=== PATIENT | male | born 1990 | race Caucasian/White ===

== ENCOUNTER 2019-11-17 21:37 | Emergency (ER) | payer BC, OTHER ==
[2019-11-17 21:54] LABS: BASO # 0.1 10^3/uL (0.0-0.2); BASO % 0.5 % (0.0-1.0); EOS # 0.4 10^3/uL (0.0-0.5); EOS % 3.4 % (0.0-3.0); HEMATOCRIT 44.8 % (42.0-52.0); HEMOGLOBIN 14.8 g/dl (13.5-17.5); LYMPH # 4.3 10^3/uL (1.5-5.0); LYMPH % 41.2 % (24.0-44.0); MEAN CORPUSCULAR HEMOGLOBIN 28.5 pg (27.0-33.0); MEAN CORPUSCULAR VOLUME 86.2 fl (80.0-96.0); MONO # 0.8 10^3/uL (0.0-0.8); MONO % 7.3 % (0.0-5.0); NEUTROPHILS % 47.2 % (36.0-66.0); PLATELET COUNT, AUTOMATED 305 10^3/uL (150-450); WHITE BLOOD COUNT 10.5 10^3/uL (4.0-10.0)
[2019-11-17] MEDS ORDERED: NS 1,000 ML IV ONE (22:00)
--- NOTE | 2019-11-17 22:12 | REPVR ---
PROCEDURE INFORMATION: Exam: CT Head Without Contrast Exam date and time: 11/17/2019 10:00 PM Age: 29 years old Clinical indication: Altered mental status/memory loss; Confusion or disorientation TECHNIQUE: Imaging protocol: Computed tomography of the head without contrast. Radiation optimization: All CT scans at this facility use at least one of these dose optimization techniques: automated exposure control; mA and/or kV adjustment per patient size (includes targeted exams where dose is matched to clinical indication); or iterative reconstruction. COMPARISON: No relevant prior studies available. FINDINGS: Brain: Normal. No hemorrhage. Unremarkable white matter. No mass effect. Ventricles: Normal. No ventriculomegaly. Bones/joints: Unremarkable. No acute fracture. Sinuses: Visualized sinuses are unremarkable. No fluid levels. Mastoid air cells: Visualized mastoid air cells are well aerated. Soft tissues: Unremarkable. IMPRESSION: No acute intracranial abnormality. Electronically signed by: Jj Crane On 11/17/2019 22:12:21 PM
[2019-11-17 23:55] LABS: ACETAMINOPHEN LEVEL < 2.0 UG/ML (10.0-30.0); ALBUMIN 4.1 GM/DL (3.2-5.2); ALT/SGPT 25 U/L (12-78); BILIRUBIN,DIRECT 0.1 MG/DL (0.0-0.2); BILIRUBIN,TOTAL 0.3 MG/DL (0.2-1.0); BLOOD UREA NITROGEN 11 MG/DL (7-18); CARBON DIOXIDE LEVEL 19 MEQ/L (21-32); CHLORIDE LEVEL 107 MEQ/L (98-107); CK-MB VALUE MASS < 1.0 NG/ML (<3.6); CPK CREATINE PHOSPHOKINASE 152 U/L (39-308); ETHYL ALCOHOL (ETHANOL) < 0.003 % (0.000-0.010); GLOMERULAR FILTRATION RATE > 60.0 (>60); GLUCOSE, FASTING 116 MG/DL (70-100); MAGNESIUM LEVEL 2.4 MG/DL (1.8-2.4); MB/CK RELATIVE INDEX 0.66 (< OR =4); POTASSIUM SERUM 3.8 MEQ/L (3.5-5.1); SALICYLATE LEVEL < 1.7 MG/DL (5.0-30.0); SODIUM LEVEL 140 MEQ/L (136-145); TOTAL PROTEIN 7.6 GM/DL (6.4-8.2); TROPONIN I < 0.02 NG/ML (< 0.10)
[2019-11-18 00:04] LABS: AMPHETAMINES LEVEL URINE NEGATIVE (NEGATIVE); BARBITURATES URINE NEGATIVE (NEGATIVE); BENZODIAZEPINES URINE NEGATIVE (NEGATIVE); CANNABINOIDS URINE POSITIVE (NEGATIVE); COCAINE METABOLITE URINE POSITIVE (NEGATIVE); METHADONE URINE NEGATIVE (NEGATIVE); OPIATES URINE NEGATIVE (NEGATIVE); PHENCYCLIDINE URINE NEGATIVE (NEGATIVE)
[2019-11-18 01:02] VITALS: BP 139/63
--- NOTE | 2019-11-18 08:01 | REP ---
Portable chest x-ray: Sitting AP view. History: Altered mental status. Comparison study: November 07, 2006. Findings: Monitoring electrodes overlie the chest. Lungs are well inflated and clear. The pleural angles are sharp. Heart size is normal. Impression: Negative portable chest x-ray. Electronically Signed by Biju Levine MD 11/18/2019 07:53 A
[2019-11-18 09:04] LABS: PROLACTIN 43.6 NG/ML (2.1-17.7)
--- NOTE | 2019-11-19 08:40 | ECGEPIP ---
[facility] - ED Test Date: 2019-11-17 Pat Name: JADYN EPPERSON Department: Room: - Gender: Male [employer]: logan : 1990 Requested By: ALEXA RUVALCABA Order Number: [id number] Reading MD: Gabby Kenney Measurements Intervals [place] Rate: 82 P: 22 SC: 157 QRS: 58 QRSD: 101 T: 14 QT: 372 QTc: 436 Interpretive Statements SINUS RHYTHM NO PRIOR Electronically Signed on 11-19-2019 8:40:04 EDT by Gabby Kenney
== END 2019-11-18 01:04 | disposition home or self-care (01) ==
LOC: M ED 21:37
DX: R56.9 Unspecified convulsions (principal); R19.7 Diarrhea, unspecified; F19.10 Other psychoactive substance abuse, uncomplicated; F17.290 Nicotine dependence, other tobacco product, uncomplicated; J30.2 Other seasonal allergic rhinitis
CPT/HCPCS: 70450; 71045; 80048; 80076; 80307; 82550; 82553; 83735; 84146; 84443; 85025; 93005; 93041; 94760; 96360; 96361; 99285; G0480

== ENCOUNTER 2022-06-30 04:45 | Emergency (ER) | payer OTHER ==
[~2022-06-30] VITALS: Ht 180.3 cm; Wt 84.1 kg
[2022-06-30 05:23] LABS: BASO # 0.1 10^3/uL (0.0-0.2); BASO % 0.6 % (0.0-1.0); EOS # 0.9 10^3/uL (0.0-0.5); EOS % 6.5 % (0.0-3.0); HEMATOCRIT 45.6 % (42.0-52.0); HEMOGLOBIN 15.5 g/dl (13.5-17.5); LYMPH # 4.3 10^3/uL (1.5-5.0); LYMPH % 30.8 % (24.0-44.0); MEAN CORPUSCULAR HEMOGLOBIN 28.9 pg (27.0-33.0); MEAN CORPUSCULAR VOLUME 84.9 fl (80.0-96.0); MONO # 0.9 10^3/uL (0.0-0.8); MONO % 6.6 % (2.0-8.0); NEUTROPHILS # 7.6 10^3/uL (1.5-8.5); NEUTROPHILS % 55.1 % (36.0-66.0); PLATELET COUNT, AUTOMATED 289 10^3/uL (150-450); RED BLOOD COUNT 5.37 10^6/uL (4.30-6.10); WHITE BLOOD COUNT 13.8 10^3/uL (4.0-10.0)
[2022-06-30 06:10] LABS: ALT/SGPT 32 U/L (12-78); BILIRUBIN,DIRECT 0.1 MG/DL (0.0-0.2); BILIRUBIN,TOTAL 0.4 MG/DL (0.2-1.0); BLOOD UREA NITROGEN 17 MG/DL (7-18); CALCIUM LEVEL 9.1 MG/DL (8.5-10.1); CARBON DIOXIDE LEVEL 27 MEQ/L (21-32); CHLORIDE LEVEL 106 MEQ/L (98-107); CREATININE FOR GFR 0.84 MG/DL (0.70-1.30); GLOMERULAR FILTRATION RATE > 60.0 (>60); GLUCOSE, FASTING 94 MG/DL (70-100); POTASSIUM SERUM 4.1 MEQ/L (3.5-5.1); SODIUM LEVEL 141 MEQ/L (136-145); TOTAL PROTEIN 7.2 GM/DL (6.4-8.2)
[2022-06-30] MEDS ORDERED: ALBUTEROL SULFATE 2.5 MG/0.5 ML INH NEB SOLN INH ONE (07:30)
[2022-06-30] MEDS ORDERED: methylPREDNISolone 125MG 2ML VIAL IV ONE (07:30)
[2022-06-30] MEDS ORDERED: IPRATROPIUM 0.5MG/ALBUTEROL 2.5MG INH SOL UD 3ML (DUONEB) NEB ONE (07:30)
[2022-06-30] MEDS ORDERED: PRED20TA PO (09:19)
[2022-06-30] MEDS ORDERED: ALBU6.7H6 INH (09:19)
[2022-06-30 10:00] VITALS: BP 147/94
== END 2022-06-30 10:30 | disposition home or self-care (01) ==
LOC: M ED 04:45
DX: J45.901 Unspecified asthma with (acute) exacerbation (principal); F12.10 Cannabis abuse, uncomplicated; F17.200 Nicotine dependence, unspecified, uncomplicated; Z91.048 Other nonmedicinal substance allergy status; Z79.51 Long term (current) use of inhaled steroids; Z79.899 Other long term (current) drug therapy
CPT/HCPCS: 71045; 80048; 80076; 85025; 87486; 87581; 87633; 87798; 94640; 94760; 96374; 99284; J2930